=== PATIENT | male | born 1980 | race Caucasian/White ===

== ENCOUNTER 2020-10-31 10:11 | Emergency (ER) | payer OTHER, BC, SELFPAY ==
[2020-10-31 10:48] VITALS: BP 126/86; PULSE 81; RESP 16; TEMP 37.1; O2SAT 98; BMI 23.7
--- NOTE | 2020-10-31 10:50 | HMH.EDUTC ---
[facility] [place] Disposition Clinical Impression: Bronchitis Disposition: Home, Self-Care Condition on Discharge: Good Instructions: DI for Acute Bronchitis Additional Instructions: Drink plenty of fluids. Take tylenol for pain or fever. Return if you begin to have difficulty breathing. Follow up with your regular doctor. GO TO THE ER FOR ANY WORSENING SYMPTOMS Prescriptions: Benzonatate [Tessalon Perle 100mg Cap] 100 mg PO TIDP PRN #30 cap PRN Reason: Cough Transmission Status: Received by [facility] Azithromycin [Z-Dieter 250mg Tab*] 250 mg PO UD DOSE PK #6 tab Transmission Status: Received by [facility] Referrals: Provider,Referral, [Primary Care Provider] - Time of Disposition: 11:04 Medical Decision Making - Medical Records Medical records reviewed: No: I reviewed the patient's medical records. - Norris Inquiry Pt receiving controlled substance: No Vital Signs: 10/31/20 10:48 10/31/20 10:52 Temperature 98.7 F 98.7 F Temperature Source Oral Pulse Rate 81 Pulse Rate [Right] 81 Respiratory Rate 16 16 Blood Pressure 126/86 Blood Pressure [Right Arm] 126/86 Blood Pressure Mean [Right Arm] 99 Blood Pressure Source [Right Arm] Automatic Cuff Blood Pressure Position [Right Arm] Sitting 02 Sat by Pulse Oximetry 98 Oxygen Delivery Method Room Air Orders (Tests/Meds): ED MEDICATIONS Discontinued Medications Generic Name Dose Route Start Last Admin Trade Name Freq PRN Reason Stop Dose Admin Ceftriaxone Sodium 1 gm 10/31/20 11:05 10/31/20 11:20 Ceftriaxone 1gm Vial IM 10/31/20 11:06 1 gm ONCE ONE Administration Protocol Lidocaine HCl 0 ml 10/31/20 11:05 10/31/20 11:20 Lidocaine 1% 5ml Pf Vial IM 10/31/20 11:06 2.1 ml ONCE ONE Administration Methylprednisolone Sodium Succinate 125 mg 10/31/20 11:05 10/31/20 11:20 Methylprednisolone Sod Succ 125mg Vial IM 10/31/20 11:06 125 mg ONCE ONE Administration [facility] [place] HPI - General Stated complaint: cough, congestion Time Seen by Provider: 10/31/20 10:50 Mode of Arrival: Ambulatory Source of Information: Patient Limitations: No Limitations Description of Symptoms (Recalled from Triage Doc. by RN): Cough not feeling well x 6 days HEENT Symptoms (Recalled from RN notes): No Resp Symptoms (Recalled from RN notes): Yes Skin Symptoms (Recalled from RN notes): No MS Symptoms (Recalled from RN notes): No Functional Status (Recalled from RN notes): wnl - History of Present Illness Provider Complaint: He states that for the past 3 days he has had sinus congestion and a cough. He has a history of getting sinus infections at this time of the year. - Related Data Previous Rx's Medication Instructions Recorded diphenhydrAMINE HCL 25 mg PO Q6HP PRN #30 tab 07/14/19 [Diphenhydramine HCl] methylPREDNISolone [Medrol] 4 mg PO DIRECTED 6 Days #21 07/14/19 tab.ds.pk Azithromycin [Z-Dieter 250mg Tab*] 250 mg PO UD DOSE PK #6 tab 10/31/20 Benzonatate [Tessalon Perle 100mg 100 mg PO TIDP PRN #30 cap 10/31/20 Cap] Allergies Allergy/AdvReac Type Severity Reaction Status Date / Time No Known Allergies Allergy Verified 10/31/20 10:50 - Worker's Comp Is this a Worker's Comp case?: No [facility] History - Hepatitis A Screen Drug use history?: No High risk sexual behaviors?: No History of sexually transmitted infection?: No Currently employed?: No Childcare worker?: No Do you have indoor plumbing?: Yes Do you have electricity?: Yes Attestation statement:: This patient has been screened for Hepatitis A risk factors. I have reviewed the patient's past medical history: Yes - Social History Alcohol Intake: never Occupational Status: other ROS Obtained: Yes All systems reviewed & no additional complaints - Constitutional Constitutional: Reports system reviewed and no additional complaints, except as docu, Denies chills, Denies fever(s) - Eyes Eyes: Denies eye disch
[2020-10-31 10:52] VITALS: BP 126/86; PULSE 81; RESP 16; TEMP 37.1; O2SAT 98
== END 2020-10-31 11:24 | disposition home or self-care (01) ==
PROVIDERS: Emergency Provider Nurse Practitioner Family
DX: J20.9 Acute bronchitis, unspecified (principal)
CPT/HCPCS: 99202; G0463

== ENCOUNTER 2021-06-18 11:05 | Emergency (ER) | payer BC, SELFPAY ==
--- NOTE | 2021-06-18 11:25 | HMH.EDUTC ---
[facility] [place] Disposition Clinical Impression: Sinusitis Qualifiers: Sinusitis location: unspecified location Chronicity: acute Recurrence: non-recurrent Qualified Code(s): J01.90 - Acute sinusitis, unspecified Disposition: Home, Self-Care Condition on Discharge: Good Instructions: DI for Sinusitis Additional Instructions: Drink plenty of fluids. Take tylenol or ibuprofen for pain or fever. Take the medications as directed. Follow up with your regular doctor. GO TO THE ER FOR ANY WORSENING SYMPTOMS Don't start the oral steroids until tomorrow, since you had the shot here today. The cough medication (promethazine dm) will make you drowsy, so don't drive or operate heavy machinery after taking it. Prescriptions: Promethazine/Dextromethorphan [Promethazine-Dm Syrup] 5 ml PO Q6HP PRN #240 ml PRN Reason: Cough Transmission Status: Pending to [facility] methylPREDNISolone [Medrol] 4 mg PO DIRECTED 6 Days #21 packet Transmission Status: Pending to [facility] Azithromycin [Z-Dieter 250mg Tab*] 250 mg PO UD DOSE PK #6 tab Transmission Status: Pending to [facility] Referrals: Provider,Referral, MD [Primary Care Provider] - Time of Disposition: 11:36 Medical Decision Making - Medical Records Medical records reviewed: No: I reviewed the patient's medical records. - Norris Inquiry Pt receiving controlled substance: No Vital Signs: 06/18/21 11:26 Temperature 98.4 F Temperature Source Oral Pulse Rate [Left] 85 Respiratory Rate 20 Blood Pressure [Right Arm] 140/83 Blood Pressure Mean [Right Arm] 102 02 Sat by Pulse Oximetry 96 Orders (Tests/Meds): ED MEDICATIONS Discontinued Medications Generic Name Dose Route Start Last Admin Trade Name Freq PRN Reason Stop Dose Admin Methylprednisolone Sodium Succinate 125 mg 06/18/21 11:25 06/18/21 11:31 Methylprednisolone Sod Succ 125mg Vial IM 06/18/21 11:26 125 mg ONCE ONE Administration [facility] [place] HPI - General Stated complaint: cough, runny nose, headache, congestion Time Seen by Provider: 06/18/21 11:25 - History of Present Illness Provider Complaint: He c/o sinus congestion and drainage for the past 2 days. He denies any fever or chills or body aches. His throat is scratchy, but no sore. He gets sinus infections at this time of the year at times. He denies any fever/chills/body aches. He is fully vaccinated against covid-19. - Related Data Previous Rx's Medication Instructions Recorded diphenhydrAMINE HCL 25 mg PO Q6HP PRN #30 tab 07/14/19 [Diphenhydramine HCl] methylPREDNISolone [Medrol] 4 mg PO DIRECTED 6 Days #21 07/14/19 tab.ds.pk Azithromycin [Z-Dieter 250mg Tab*] 250 mg PO UD DOSE PK #6 tab 10/31/20 Benzonatate [Tessalon Perle 100mg 100 mg PO TIDP PRN #30 cap 10/31/20 Cap] Azithromycin [Z-Dieter 250mg Tab*] 250 mg PO UD DOSE PK #6 tab 06/18/21 Promethazine/Dextromethorphan 5 ml PO Q6HP PRN #240 ml 06/18/21 [Promethazine-Dm Syrup] methylPREDNISolone [Medrol] 4 mg PO DIRECTED 6 Days #21 06/18/21 packet Allergies Allergy/AdvReac Type Severity Reaction Status Date / Time No Known Allergies Allergy Verified 10/31/20 10:50 [facility] History - Hepatitis A Screen Attestation statement:: This patient has been screened for Hepatitis A risk factors. I have reviewed the patient's past medical history: Yes - Social History Smoking Status: Never smoker Alcohol Intake: never Occupational Status: other ROS Obtained: Yes All systems reviewed & no additional complaints - Constitutional Constitutional: Denies chills, Denies fever(s), Reports poor appetite, Reports malaise - Eyes Eyes: Denies eye discharge - ENT Ears, Nose, Mouth, and Throat: Reports as per HPI - Cardiovascular Cardiovascular: Denies chest pain - Respiratory Respiratory: Denies chest congestion, Reports cough, Denies dyspnea, Denies stridor, Denies wheezing - Gastrointestinal Gastrointestingal: Re
[2021-06-18 11:26] VITALS: BP 140/83; PULSE 85; RESP 20; TEMP 36.9; O2SAT 96; BMI 23.7
[2021-06-18 11:38] VITALS: BP 140/83; PULSE 85; RESP 20; TEMP 36.9
== END 2021-06-18 11:45 | disposition home or self-care (01) ==
PROVIDERS: Emergency Provider Nurse Practitioner Family
DX: J01.90 Acute sinusitis, unspecified (principal)
CPT/HCPCS: 96372; 99202; G0463

== ENCOUNTER 2021-11-15 15:47 | Emergency (ER) | payer BC, SELFPAY ==
[2021-11-15 17:03] VITALS: BP 0/0; PULSE 0; RESP 0; TEMP -17.7; TEMP 0
== END 2021-11-15 17:06 | disposition left against medical advice (07) ==
LOC: UTC 15:51
PROVIDERS: Emergency Provider Nurse Practitioner
DX: Z53.21 Procedure and treatment not carried out due to patient leaving prior to being seen by health care provider (principal)